=== PATIENT | female | born 1995 | race Asian ===

== ENCOUNTER 2019-03-13 12:55 | Emergency (ER) | payer OTHER ==
[2019-03-13] MEDS ORDERED: NS 0.9% 1000 ML** 1,000 ML IV ONE (14:10)
--- NOTE | 2019-03-13 14:16 | ED ---
Complex/Multi-Sys Presentation - HPI Summary HPI Summary: The patient is a 23 y/o F presenting to [facility] accompanied by friend with a chief complaint of anxiety attack last night. She reports that she has been experiencing decreased appetite secondary to indigestion issues over the last two weeks from which she noticed she has lost 10lbs. Last night, she was concerned for her health and had a panic attack. She calmed herself down and slept well. This morning, she went to the gym for the first time since feeling unwell, where she ran on the treadmill for approximately 25 minutes. Afterwards , she starting to feel weak in her hands and legs and went to urgent care before coming to the ED. She is still experiencing these symptoms now, but she is not in any pain. She notes that she didnt eat yet today. She also has been feeling nauseous, but she denies any vomiting or diarrhea. PMHx: anxiety. Nonsmoker, no EtOH, no substance use. Medications reviewed. Allergies noted. - History Of Current Complaint Chief Complaint: EDGeneral Time Seen by Provider: 03/13/19 12:57 Hx Obtained From: Patient Onset/Duration: Gradual Onset, Lasting Hours, Still Present Timing: Hours Severity Currently: Moderate Severity Initially: Moderate Aggravating Factor(s): feeling unwell worsened anxiety Alleviating Factor(s): friend helped calm down Associated Signs And Symptoms: Positive: Weakness - hands and legs, Nausea, Decreased Oral Intake, Other - anxiety. Negative: Vomiting, Diarrhea - Allergies/Home Medications Allergies/Adverse Reactions: Allergies Allergy/AdvReac Type Severity Reaction Status Date / Time No Known Allergies Allergy Verified 03/13/19 14:26 Home Medications: Home Medications NK [No Home Medications Reported] 03/13/19 [History Confirmed 03/13/19] PMH/Surg Hx/FS Hx/Imm Hx Endocrine/Hematology History: Denies: Hx Diabetes Cardiovascular History: Denies: Hx Hypercholesterolemia, Hx Hypertension Psychiatric History: Reports: Hx Anxiety - Surgical History Surgical History: None Surgery Procedure, Year, and Place: none Infectious Disease History: No Infectious Disease History: Denies: Traveled Outside the [place] in Last 30 Days - Family History Known Family History: Positive: Other - breast cancer Negative: Cardiac Disease, Hypertension, Diabetes - Social History Alcohol Use: None Hx Substance Use: No Substance Use Type: Reports: None Hx Tobacco Use: No Smoking Status (MU): Never Smoked Tobacco Review of Systems Positive: Nausea, Other - decreased appetite. Negative: Vomiting, Diarrhea Positive: Weakness - hands, legs Positive: Anxious All Other Systems Reviewed And Are Negative: Yes Physical Exam - Summary Physical Exam Summary: VITAL SIGNS: Reviewed. GENERAL: Patient is a well-developed and nourished female who is lying comfortable in the stretcher. Patient is not in any acute respiratory distress. HEAD AND FACE: No signs of trauma. No ecchymosis, hematomas or skull depressions. No sinus tenderness. EYES: PERRLA, EOMI x 2, No injected conjunctiva, no nystagmus. EARS: Hearing grossly intact. Ear canals and tympanic membranes are within normal limits. MOUTH: Oropharynx within normal limits. NECK: Supple, trachea is midline, no adenopathy, no JVD, no carotid bruit, no c- spine tenderness, neck with full ROM. CHEST: Symmetric, no tenderness at palpation. LUNGS: Clear to auscultation bilaterally. No wheezing or crackles. CVS: Regular rate and rhythm, S1 and S2 present, no murmurs or gallops appreciated. ABDOMEN: Soft, non-tender. No signs of distention. No rebound, no guarding, and no masses palpated. Bowel sounds are normal. EXTREMITIES: FROM in all major joints, no edema, no cyanosis or clubbing. NEURO: Alert and oriented x 3. No acute neurological deficits. Speech is normal and follows commands. SKIN: Dry and warm. Triage Information Reviewed: Yes Vital Signs On Initial Exam: Initial Vitals Temp Pulse Resp BP Pulse Ox 97.5 F 91 14 133/93 100 03/13/19 12:59 03/13/19 12:59 03/13/19 12:59 03/13/19 12:59 03/13/19 12:59 Vital Signs Reviewed: Yes Procedures - Sedation Patient Received Moderate/Deep Sedation with Procedure: No Diagnostics - Vital Signs Vital Signs Temp Pulse Resp BP Pulse Ox 03/13/19 12:59 97.5 F 91 14 133/93 100 - Laboratory Result Diagrams: 03/13/19 14:16 03/13/19 14:16 Lab Statement: Any lab studies that have been ordered have been reviewed, and results considered in the medical decision making process. Re-Evaluation - Re-Evaluation First Eval Re-Evaluation Time: 15:30 Change: Unchanged Comment: We discussed all results and plan for discharge. Complex Multi-Symp Course/Dx Assessment/Plan: Patient is a 23 y/o F with chief complaint of anxiety attack last night with decreased appetite and weakness in the hands and legs onset today after going to the gym. Blood work without any significant abnormality except for calcium of 10.5 and lipase less than 10. In the ED course, the patient was treated with IV fluids for dehydration, and now she is feeling better. The patient is tolerating medication by mouth. Therefore, the patient will be discharged home with follow-up with PCP. I discussed all the findings and test results with the patient. Patient was instructed to return to the emergency room immediately if any of the symptoms return or worsen. Plan of care was discussed with the patient and understands and agrees. All questions were answered at patient satisfaction. There were no further complaints or concerns. Lung exam before discharge: CTA B/L. Good air exchange. No wheezing or crackles heard. CVS: S1 and S2 present. No murmurs appreciated. Patient is alert and oriented x 3. Patient is hemodynamically stable. Patient will be discharged home with follow up PCP in the next 2-3 days. - Diagnoses Provider Diagnoses: Anxiety Discharge ED - Sign-Out/Discharge Documenting (check all that apply): Patient Departure - Patient will be discharged home. - Discharge Plan Condition: Stable Disposition: HOME Patient Education Materials: Anxiety (ED) Referrals: [facility] - [facility] [Primary Care Provider] - 3 Days Additional Instructions: Follow up with your primary care provider in 2-3 days. Return to the emergency department for any new or worsening symptoms. - Billing Disposition and Condition Condition: STABLE Disposition: Home - Attestation Statements Document Initiated by Imtiaz: Yes Documenting Scribe: Judy Benavides Provider For Whom Imtiaz is Documenting (Include Credential): Dr. Hudson Dior MD Scribe Attestation: Judy Mcnamara scribed for Dr. Hudson Dior MD on 03/13/19 at 1900. Scribe Documentation Reviewed: Yes Provider Attestation: The documentation as recorded by the Judy bustos accurately reflects the service I personally performed and the decisions made by me, Dr. Hudson Dior MD Status of Scribe Document: Viewed
[2019-03-13 14:29] LABS: ABS Eosinophils 0.1 10^3/ul (0-0.6); ABS Lymphocytes 1.4 10^3/ul (1.0-4.8); ABS Monocytes 0.5 10^3/ul (0-0.8); ABS Neutrophils 5.9 10^3/ul (1.5-7.7); Eosinophil % 1.3 %; Hematocrit 43 % (35-47); Mean Corpuscular HGB Conc 35 g/dL (31-36); Mean Corpuscular Hemoglobin 30 pg (27-31); Mean Corpuscular Volume 85 fL (80-97); Mean Platelet Volume 6.9 fL (7.4-10.4); Nucleated Red Blood Cells % 0.1; Platelet Count 310 10^3/uL (150-450); Red Blood Count 5.09 10^6 /uL (3.70-4.87); Red Cell Distribution Width 13 % (10-15)
[2019-03-13 14:52] LABS: ALT 45 U/L (7-52); AST 25 U/L (13-39); Albumin 4.7 g/dL (3.2-5.2); Albumin/Globulin Ratio 1.2 (1-3); Alkaline Phosphatase 81 U/L (34-104); Anion Gap 8 mmol/L (2-11); BUN/Creatinine Ratio 10.8 (8-20); Blood Urea Nitrogen 8 mg/dL (6-24); C Reactive Protein 2.01 mg/L (<8.01); CO2 Carbon Dioxide 27 mmol/L (22-32); Calcium 10.5 mg/dL (8.6-10.3); Chloride 103 mmol/L (101-111); EGFR African American 119.9 (>60); EGFR Non-African American 99.1 (>60); Globulin 3.9 g/dL (2-4); Glucose 99 mg/dL (70-100); Potassium 4.4 mmol/L (3.5-5.0); Sodium 138 mmol/L (135-145); Total Protein 8.6 g/dL (6.4-8.9)
[2019-03-13 15:55] VITALS: BP 136/82
== END 2019-03-13 15:35 | disposition home or self-care (01) ==
LOC: EDBD → ED 12:55 → MERGE 12:55 → ED 15:35
DX: F41.9 Anxiety disorder, unspecified (principal)
CPT/HCPCS: 36415; 80053; 83690; 85025; 86140; 99282